=== PATIENT | male | born 1990 | race Caucasian/White ===

== ENCOUNTER 2019-11-24 16:06 | Emergency (ER) | payer OTHER ==
[~2019-11-24] VITALS: Ht 172.7 cm; Wt 99.8 kg
--- NOTE | 2019-11-24 16:38 | NUR ---
ED Nurse Note:pt. came with right penial swelling
--- NOTE | 2019-11-24 16:52 | Emergency Room Report ---
History of Present Illness General Chief Complaint: Male Urogenital Problems Source: Patient Present Illness HPI Disclaimer: Please note that this report is being documented using DRAGON technology. This can lead to erroneous entry secondary to incorrect interpretation by the dictating instrument. HPI: 29-year-old male presents for evaluation of penile edema. He first noticed this last night. Patient states there is a small swelling and "lump" over the dorsum of the penis on the right side approximately 7 o'clock position. Nontender to palpation at this time though he states it was slightly tender yesterday while he was masturbating. Denies any pain or swelling in the glands or pain or swelling in the testicles. Denies any penile discharge. Denies overlying erythema, skin breakdown, vesicle formation, rash, lumps/bumps in the groins or any other changes. No prior history of similar symptoms. He does shave his pubic hair. Allergies: Coded Allergies: ACETAMINOPHEN (Verified Allergy, Unknown, 11/24/19) NALOXONE (Verified Allergy, Unknown, 11/24/19) Nursing Documentation-[facility] Past Medical History: No History, Except For Hx Asthma: Yes Review of Systems All Other Systems: negative except mentioned in HPI Physical Exam Vital Signs Date Time Temp Pulse Resp B/P (MAP) Pulse Ox O2 Delivery O2 Flow Rate FiO2 11/24/19 16:18 97.5 82 18 95 Room Air General: Awake and alert, no acute distress HEENT: NC/AT. EOMI. Resp: Normal work of breathing : Uncircumcised male. Foreskin easily retracts. There is no swelling or edema of the foreskin or glans. There is a small nonfluctuant nontender area of edema at the 7 o'clock position in the mid shaft. No overlying skin changes , no erythema, no warmth, no drainage, no skin breakdown. Nontender to palpation. Testes are in anatomic position. Nontender. Cremasteric reflex present bilaterally. MSK: Normal tone and bulk. Moving all extremities. No obvious deformity. Neuro: Awake and alert. Mentating appropriately Medical Decision Making Diagnostic Impression: Primary Impression: Penile swelling ER Course 29-year-old male presents for evaluation of penile mass/edema first noticed yesterday. Overall he is well-appearing with stable vital signs. I see no signs of phimosis, paraphimosis, balanitis and the patient's history does not match with urinary tract infection, testicular torsion, orchitis, prostatitis or other complications at this time. May be an ingrown hair which should resolve over the next few days or possibly he suffered a microtrauma that he cannot remember. Either way he is well-appearing. I did offer him urinalysis for evaluation of possible urinary tract infection but he declined. He states he will follow-up with clinic and referral to urology if symptoms fail to improve on their own. I discussed with him reasons to return to the emergency department sooner including signs of infection, phimosis, paraphimosis, balanitis and cellulitis. He understands and agrees with this treatment plan will be discharged home. Last Vital Signs Date Time Temp Pulse Resp B/P (MAP) Pulse Ox O2 Delivery O2 Flow Rate FiO2 11/24/19 16:36 97.5 18 95 Room Air 11/24/19 16:18 82 Disposition: HOME, SELF-CARE Condition: Stable Referrals: [facility]. [facility] Additional Instructions: Please follow-up with 1 of the clinics listed here in your discharge paperwork. If your symptoms continue ask for referral to urology. Return if there is any severe swelling, drainage, difficulty passing urine, painful urination, bloody urination, scrotal swelling or any other changes in your health. Jon Miles MD Nov 24, 2019 16:51
--- NOTE | 2019-11-24 16:55 | NUR ---
ER DISCHARGE NOTE: Patient is cleared to be discharged per ERMD, pt is aox4, on room air, with stable vital signs. pt was given dc instructions, pt was able to verbalize understanding, pt is able to ambulate with steady gait. pt took all belongings.
== END 2019-11-24 17:07 | disposition home or self-care (01) ==
LOC: EMR 16:34
DX: N48.89 Other specified disorders of penis (principal); J45.909 Unspecified asthma, uncomplicated; Z88.6 Allergy status to analgesic agent; Z88.8 Allergy status to other drugs, medicaments and biological substances
CPT/HCPCS: 99281